=== PATIENT | female | born 1945 | race Caucasian/White ===

== ENCOUNTER → 2019-10-28 | Outpatient (CLI) | payer OTHER, BC ==
[~2019-10-28] VITALS: Ht 162.6 cm; Wt 117.9 kg
[~2019-10-28] MED LIST: ACCUNEB SO1.25 MG/1 INH; ASA81BEC PO; HYZAAR 100-12.1 EACH PO; LIPITOR10 MG PO
--- NOTE | ~2019-10-28 | P ---
[facility] [place] [address] PROCEDURE REPORT Name: EMERSON ARCINIEGA Room #: [facility]#: [id number] Admission: 10/28/19 Attend Phys: Alexandro Mohan MD Discharge: Date of : 41 Report #: [id number] THIS REPORT FOR: //name// CC: Alexandro Moran DO DATE OF SERVICE: 10/28/2019 OUTPATIENT COLONOSCOPY REPORT BRIEF HISTORY: The patient is a 74-year-old woman for average risk screening colonoscopy. Last colonoscopy was about 14 years ago and was negative. PREOPERATIVE DIAGNOSIS: Average risk screening colonoscopy. POSTOPERATIVE DIAGNOSES: 1. Multiple colon polyps. 2. Moderate sigmoid diverticulosis coli. MEDICATIONS: Deep sedation with propofol per anesthesia. SPECIMENS: 1. Polyp from cecum. 2. Polyp from proximal ascending colon. 3. Polyp from distal transverse colon. ESTIMATED BLOOD LOSS: 3 mL. PROCEDURE: Colonoscopy to cecum and terminal ileum with snare polypectomy and biopsy. FINDINGS: Prior to propofol sedation, procedure of colonoscopy discussed with the patient as well as potential risks and its complications. She indicates she understands and desires to proceed. DESCRIPTION OF PROCEDURE: With the patient in left lateral decubitus position, digital examination was completed, which revealed no abnormalities. Subsequently, the Olympus video colonoscope was introduced in the rectum, advanced under direct vision to the cecum. Done with some difficulty as she reports redundant colon. The cecum was reached, identified by the ileocecal valve and the appendiceal orifice. I was able to advance the tip of the scope to the mouth of the ileocecal valve. I could see a villous pattern, but due to looping the scope, we could not cross the ileocecal valve. At that point, the scope was slowly withdrawn and careful circumferential views were obtained. There were some limitations of prep in particular proximal colon with a residual [facility] [address] [place] [address] PROCEDURE REPORT Name: EMERSON ARCINIEGA Kasey Room #: [facility]#: [id number] Admission: 10/28/19 Attend Phys: Alexandro Mohan MD Discharge: Date of : 41 Report #: [id number] bilious liquidy material. We irrigated extensively and suctioned. We were able to clean much of this material up. Fairly good views were obtained. Although, some material remained and small lesions could have been overlooked. Within the cecum, a diminutive polyp was identified and removed with biopsy forceps. As we withdrew the scope in the very proximal ascending colon, a sessile 1 cm polyp was seen and removed by hot snare polypectomy. A fragment remained along the resection edge and this was cleaned up with biopsy forceps. Scope was further withdrawn and no additional abnormalities were noticed. Additional neoplastic lesions were seen. In the sigmoid colon, there was noted to be moderately severe diverticular disease without endoscopic evidence of diverticulitis. Scope was withdrawn in the rectum, no abnormalities were seen. Upon retroflexion, no abnormalities were seen. Scope was withdrawn. The patient tolerated the procedure well. CONDITION OF THE PATIENT UPON DISCHARGE: Following procedure, the patient drowsy, aroused, conversant and will be discharged home when fully ambulatory. INSTRUCTIONS TO THE PATIENT AND FAMILY AT THE TIME OF DISCHARGE: Three polyps identified as noted above. Due to the size of the proximal ascending colon polyp, we will have her return in 3 years for high risk screening colonoscopy. I would suggest high-fiber diet with regards to the diverticular disease. She will otherwise return to the care of Dr. Constantin Moran and return to see me as needed. Withdrawal time from the cecum was 20 minutes 57 seconds. By: 0959 [id number] Alexandro Mohan MD /nt
--- NOTE | 2019-10-29 14:07 | PATH ---
[facility] [place] [address] PATHOLOGY RPT PROCEDURE Name: EMERSON ARCINIEGA Room #: [facility]#: [id number] Admission: 10/28/19 Date of : 41 Discharge: Report #: [id number] Path Case #: [id number] [facility] Accession Number: [id number] . 01 Material submitted: . PART A: cecum - POLYP AT CECUM PART B: colon - POLYP AT PROXIMAL ASCENDING COLON. Modifiers: proximal, ascending PART C: colon - POLYP AT DISTAL TRANSVERSE COLON. Modifiers: distal, transverse . 01 Clinical history: . Pre-OP DX: Screening Post-OP DX: Colon polyps and diverticulosis . 02 Diagnosis: A. Colonic mucosa "polyp at cecum": - Tubular adenoma. - There is no evidence of high-grade dysplasia or malignancy. . B. Colonic mucosa "polyp at proximal ascending colon": - Fragments of tubulovillous adenoma. - There is no evidence of high-grade dysplasia or malignancy. . C. Colonic mucosa "polyp at distal transverse colon": - Fragments of tubular adenoma. - There is no evidence of high-grade dysplasia or malignancy. (SHA:pit 10/29/2019) QTP 10/29/2019 0909 Local . 02 Electronically signed: . Vinay Sharma MD, Pathologist NPI- [id number] . 01 Gross description: . A. Received in formalin labeled "Emerson Arciniega, polyp at cecum," is a single segment of donovan soft tissue measuring 0.5 cm in maximum dimension. The specimen is entirely submitted in cassette A1. . B. Received in formalin labeled "Espinale, polyp at proximal ascending," and additionally labeled on the requisition as "colon," are multiple segments of donovan soft tissue measuring 1.5 x 0.8 x 0.1 cm in aggregate dimensions. The specimen is filtered and entirely submitted in cassette B1. . C. Received in formalin labeled "Espinale, polyp at distal transverse colon," is a single segment of donovan soft tissue measuring 1.1 cm in maximum [address] [address] PATHOLOGY RPT PROCEDURE Name: EMERSON ARCINIEGA A Room #: REG [facility]#: [id number] Admission: 10/28/19 Date of : 41 Discharge: Report #: [id number] Path Case #: [id number] dimension. The specimen is submitted entirely in cassette C1. (TSD; 10/28/2019) TOB/TOB 10/28/2019 2258 Local . 02 Pathologist provided ICD-10: D12.0, D12.2, D12.3 . 02 CPT . 405640, 042432, 613980 Specimen Comment: A courtesy copy of this report has been sent to [phone], [phone] Specimen Comment: [id number] Specimen Comment: Report sent to / DR SUMMERS Specimen Comment: A duplicate report has been generated due to demographic updates. Performed at: [facility] [address] [place] [id number] MD Ashok Love MD Phone: [phone] Performed at: [address] [id number] MD Yahir Banerjee MD Phone: [phone]
== END | disposition home or self-care (01) ==
LOC: GI 07:40 → OR 09:08 → GI 12:59
DX: Z12.11 Encounter for screening for malignant neoplasm of colon (principal); D12.0 Benign neoplasm of cecum; D12.2 Benign neoplasm of ascending colon; D12.3 Benign neoplasm of transverse colon; K57.30 Diverticulosis of large intestine without perforation or abscess without bleeding; I10 Essential (primary) hypertension; J45.909 Unspecified asthma, uncomplicated; Z98.890 Other specified postprocedural states; Z79.899 Other long term (current) drug therapy; Z90.49 Acquired absence of other specified parts of digestive tract; Z98.41 Cataract extraction status, right eye; Z98.42 Cataract extraction status, left eye; Z79.82 Long term (current) use of aspirin
CPT/HCPCS: 62110; 62900

== ENCOUNTER → 2020-03-24 | Outpatient (CLI) | payer OTHER, BC | LOC: SJCVCIMAG 14:35 | DX: I34.0 Nonrheumatic mitral (valve) insufficiency (principal); I45.10 Unspecified right bundle-branch block; I10 Essential (primary) hypertension; E78.5 Hyperlipidemia, unspecified; Z82.49 Family history of ischemic heart disease and other diseases of the circulatory system ==